=== PATIENT | female | born 1970 | race Two or more races ===

== ENCOUNTER → 2023-11-05 | Emergency (ER) | payer BC, OTHER ==
[~2023-11-05] VITALS: Ht 154.9 cm; Wt 70.0 kg
[~2023-11-05] MED LIST: EPINEPHrine HCL 1 MG/10 ML SYRG ONE
[2023-11-05 22:43] VITALS: BP 0/0
[2023-11-05 23:02] VITALS: PULSE 0; RESP 0; O2SAT 0
== END ==
LOC: EDBD 21:57 → ER 21:57
DX: I46.9 Cardiac arrest, cause unspecified (principal)
CPT/HCPCS: 31500; 92950; 99285; J0171